=== PATIENT | female | born 1955 | race Caucasian/White ===

== ENCOUNTER 2017-08-06 09:56 | Day surgery (SDC) | payer OTHER ==
[~2017-08-06] VITALS: Ht 157.5 cm; Wt 68.9 kg
[~2017-08-06 09:56] MED LIST: ADV100INH INH; BYST10TA2 PO; CAND16TA7 PO; CITRTAB18 PO; CLOB0.0548 TOP; FISH1000 PO; HYDR1OI EXT; HYDR200T3 PO; HYDR25TAB PO; LECI1200 PO; LEUC10TA PO; METH2.5TA PO; MILK300C PO; MONT10TA2 PO; NIFE30TA7 PO; PANT40TA2 PO; PROAAER10 INH; SAVE50TA PO; TAMO20TA4 PO; VITA10005 PO; plaquenil PO
[2017-08-06] MEDS ORDERED: LR 1,000 ML IV SCH ×2 (14:45→15:00)
[2017-08-06] MEDS ORDERED: IBUPROFEN 600 MG TAB PO PRN (14:45)
[2017-08-06] MEDS ORDERED: ONDANSETRON 4MG/2ML VIAL (J2405) IV PRN (15:00)
[2017-08-06] MEDS ORDERED: fentaNYL 100 MCG/2 ML INJECTION (J3010) IV PRN (15:00)
[2017-08-06] MEDS ORDERED: fentaNYL 100 MCG/2 ML INJECTION (J3010) As Ordered ONE (15:02)
[2017-08-06] MEDS ORDERED: MIDAZOLAM INJ 2 MG/2 ML VIAL (J2250) As Ordered ONE (15:02)
[2017-08-06] MEDS ORDERED: KETOROLAC 60 MG/2 ML VIAL (J1885) As Ordered ONE (15:02)
[2017-08-06] MEDS ORDERED: dexameTHASONE 4 MG/ML 1ML VIAL (J1100) As Ordered ONE (15:02)
[2017-08-06] MEDS ORDERED: PROPOFOL 200 MG/20 ML VIAL As Ordered ONE (15:02)
[2017-08-06] MEDS ORDERED: LIDOCAINE 2% INJ 100 MG/5 ML SDV (FOR ANES.) As Ordered ONE (15:02)
[2017-08-06] MEDS ORDERED: ONDANSETRON 4MG/2ML VIAL (J2405) As Ordered ONE (15:03)
[2017-08-06 16:36] VITALS: BP 143/82
--- NOTE | 2017-08-06 19:18 | RO ---
DATE OF PROCEDURE: 08/06/2017 PREOPERATIVE DIAGNOSIS AND INDICATION FOR PROCEDURE: Postmenopausal bleeding with personal history of breast cancer. POSTOPERATIVE DIAGNOSIS: Post menopausal bleeding with personal history of breast cancer with additional diagnosis of fibroid within the endocervical canal and small polypoid lesion in the right cornu PROCEDURE: Dilatation and curettage hysteroscopy, myomectomy and removal of both of those lesions. SURGEON: Dr. Minor ANESTHESIA: Laryngeal mask anesthesia (LMA). BRIEF DESCRIPTION OF PROCEDURE AND FINDINGS: Maira was brought to the operating room where sufficient LMA anesthesia was induced and she was prepped, draped, and positioned in the usual sterile fashion with the bladder emptied. The anterior aspect of the cervix was grasped with a single tooth tenaculum and the cervix was carefully dilated to allow introduction of the hysteroscope which was then placed. We were able to see fairly tortuous endocervical canal and in the posterior aspect of this a sort of bilobed polypoid projection extended into the endocervical canal, moving past that we were able to see a normal endometrial cavity with a small polypoid projection in the right cornu and this is photographed. We placed the reach MyoSure device and we were able to completely remove the lesion from the cornu and resect the endometrium and then come back down into the endocervical canal and remove the lesion in the endocervical canal which by texture was a fibroid and we have photographed the document status after the resection. We were able to take both out. There did not appear to be any hypervascular from like lesions or anything with a particularly concerning appearance from hysteroscopic evaluation we definitely removed these lesions from furthest patient with the significant history and then ended the procedure with curettage and then removed the instruments. ESTIMATED BLOOD LOSS FOR THE PROCEDURE: 5 mL of less. SPECIMEN: The resection was endometrium with that polypoid lesions as well as with the fibroid and it all went together. COMPLICATIONS: None. CONDITION AND DISPOSITION: Maira tolerated the procedure well and was recovering in the recovery room in good condition.
== END 2017-08-06 16:37 | disposition home or self-care (01) ==
LOC: M SDC 09:56
PROVIDERS: ATTEND Obstetrics & Gynecology
DX: N95.0 Postmenopausal bleeding (principal); D25.9 Leiomyoma of uterus, unspecified; N84.0 Polyp of corpus uteri; K21.9 Gastro-esophageal reflux disease without esophagitis; I10 Essential (primary) hypertension; M06.9 Rheumatoid arthritis, unspecified; J45.909 Unspecified asthma, uncomplicated; R06.83 Snoring; Z88.0 Allergy status to penicillin; Z91.040 Latex allergy status; Z79.899 Other long term (current) drug therapy; Z85.3 Personal history of malignant neoplasm of breast; Z78.0 Asymptomatic menopausal state; Z92.3 Personal history of irradiation
CPT/HCPCS: 58558; 88305; J1100; J1885; J2250; J2405; J3010